=== PATIENT | male | born 1970 | race Caucasian/White ===

== ENCOUNTER 2025-05-22 16:21 | Outpatient (OUT) | payer BC, SELFPAY ==
[2025-05-22 16:43] LABS: Hematocrit 36.6 % (42.0-54.0); Hemoglobin 12.5 g/dL (14.0-18.0); Immature Granulocytes Abs Auto 0.01 10^3/uL (0.00-0.03); Immature Granulocytes Pct Auto 0.2 % (0.0-0.5); Lymphocytes Absolute Auto 1.3 10^3/uL (1.2-3.8); Mean Corpuscular HGB Conc 34.2 g/dL (29.9-35.2); Mean Corpuscular Hemoglobin 30.1 pg (25.9-34.0); Mean Corpuscular Volume 88.2 fL (80.0-94.0); Platelet Count 295 10^3/uL (150-450); Red Blood Count 4.15 10^6/uL (4.70-6.10); White Blood Count 5.1 10^3/uL (4.0-11.0)
[2025-05-22 17:29] LABS: Mono Screen NEGATIVE (NEGATIVE)
== END 2025-05-22 16:22 | disposition home or self-care (01) ==
PROVIDERS: PCP Family Medicine; Visit Provider Nurse Practitioner Family
DX: R50.9 Fever, unspecified (principal)
CPT/HCPCS: 36415; 85025; 85652; 86140; 86308

== ENCOUNTER 2025-05-26 12:48 | Outpatient (OUT) | payer BC, SELFPAY ==
--- NOTE | 2025-05-26 13:04 | XR_ITS ---
The [address] [address] Patient Name: KIM GUTHRIE JR MRN: [id number] date: 1970 Sex: M Assigned Patient Location: LAB Current Patient Location: LAB Accession/Order Number: [id number] Exam Date: 05/26/2025 13:10 Report Date: 05/26/2025 14:15 At the request of: YUSEF TELLEZ MD Procedure: XR chest 2V Chest 2 views CLINICAL HISTORY: Fever, Fatigue COMPARISON: None FINDINGS: Heart normal in size. Left lower lobe airspace disease. No pneumothorax pleural effusion or free air. XR/XR chest 2V IMPRESSION: LEFT LOWER LOBE AIRSPACE DISEASE. REPEAT CHEST X-RAY AFTER THERAPY IS SUGGESTED TO ENSURE RESOLUTION. Impression dictated by: Leonel Kearney Jr., DVíctorOVíctor 05/26/2025 2:15 PM Dictation Location: [place] [address] Electronically authenticated by: [id number] Y Date: 05/26/2025 14:15
[2025-05-26 14:19] LABS: Glucose Urine UA NEGATIVE (NEGATIVE)
== END 2025-05-26 12:49 | disposition home or self-care (01) ==
PROVIDERS: PCP Family Medicine; Visit Provider Family Medicine
DX: R50.9 Fever, unspecified (principal); R53.83 Other fatigue
CPT/HCPCS: 71046; 81003; 87086

== ENCOUNTER 2025-06-16 12:37 | Outpatient (OUT) | payer BC, SELFPAY ==
--- OUTSIDE RECORDS SUMMARY | 2025-06-16 12:42 | XMS_ITS | Clinical Summary ---
Author Organization [facility] Address [address], [address] [place] [address] Care Team Providers Care Tire Assembler Name Role Phone Roxanna Blancas MD Primary Care Provider [phone] Allergies Active AllergyReactionsCriticalityNoted DateComments Sulfamethoxazole-DlbocyrlfpsbMlqxFfy75/13/2019 Allergic sun Ithgdnnt98/08/2023 Headaches Medications MedicationSigDispense QuantityRefillsLast FilledStart DateEnd DateStatus lisinopril (PRINIVIL;ZESTRIL) 10 MG tablet Take 1 tablet by mouth dailyActive buprenorphine-naloxone (SUBOXONE) 8-2 MG SUBL SL tablet place 1 tablet under the tongue and ALLOW to dissolve once daily06/03/2023ctive cyclobenzaprine (FLEXERIL) 10 MG tablet Take 1 tablet by mouth 3 times daily as neededActive senna (SENOKOT) 8.6 MG tablet Take 1 tablet by mouth dailyActive esomeprazole Magnesium (NEXIUM) 20 MG PACK Take 1 packet by mouth dailyActive Cholecalciferol (VITAMIN D3) 50 MCG (2000 UT) CAPS Take by mouthActive Vitamin A 2400 MCG (8000 UT) CAPS Take by mouthActive vitamin E 400 UNIT capsule Take 1 capsule by mouth dailyActive vitamin C (ASCORBIC ACID) 500 MG tablet Take 1 tablet by mouth dailyActive Lawrence-3 Fatty Acids (FISH OIL) 1000 MG capsule Take by mouth dailyActive zinc 50 MG TABS tablet Take 1 tablet by mouth dailyActive diphenhydrAMINE (BENADRYL) 25 MG capsule Take 1 capsule by mouth every 6 hours as needed for ItchingActive Bee Pollen 1000 MG TABS Take by mouthActive Active Problems No known active problems Social History Tobacco UseTypesPacks/DayYears UsedDateSmoking Tobacco: Unknown Tobacco Cessation:Counseling Given: Not Answered Sex and Gender InformationValueDate RecordedSex Assigned at BirthNot on file Legal FooDgch6904/27/2023 9:35 AM EDTGender IdentityNot on fileSexual Orientation Not on file Last Filed Vital Signs Vital SignReadingTime TakenCommentsBlood Pressure--Pulse--Temperature-- Respiratory Rate--Oxygen Saturation--Inhaled Oxygen Concentration--Uhzoaa93.4 kg (217 lb)06/05/2023 8:13 AM OWTGhiure567.9 cm (6')06/05/2023 8:13 AM EDTBody Mass Index29.431 8:13 AM EDT Plan of Treatment Health MaintenanceDue DateLast DoneCommentsDepression Tzkjlf1811/06/1980HIV screen 11/07/1983Hepatitis C ajumte2511/06/1986DTaP/Tdap/Td vaccine (1 - Tdap)11/07/1987 Hepatitis B vaccine (1 of 3 - 19+ 3-dose series)11/07/19870090Mnpsoz13/23/2009 Dzykokpqgqo20/23/2014Colorectal Cancer Ucgbyy3611/06/2013FIT/FOBT: Average risk 2013Fecal-DNA (Cologuard): Average risk2013Sigmoidoscopy/CT qpibxwocawgk94/23/2014Pneumococcal 50+ years Vaccine (1 of 1 - PCV)2018Flu vaccine (#1)511/11/2021, 04/29/2021, 06/17/2020, Additional history existsCOVID-19 Vaccine (2024- season)5109/04/2020, 12/03/2020, 11/07/2020hingles sxjggavZtzxpefta34/14/2022, 07/22/2021Hepatitis A vaccineAged OutNo longer eligible based on patient's age to complete this topicHib vaccine Aged OutNo longer eligible based on patient's age to complete this topic Meningococcal (ACWY) vaccineAged OutNo longer eligible based on patient's age to complete this topicMeningococcal B vaccineAged OutNo longer eligible based on patient's age to complete this topicPolio vaccineAged OutNo longer eligible based on patient's age to complete this topic Insurance Care Teams Team MemberRelationshipSpecialtyStart DateEnd Date Roxanna Blancas MD [address] [place] [phone] PCP - GeneralFamily Medicine05/05/23
--- OUTSIDE RECORDS SUMMARY | 2025-06-16 12:42 | XMS_ITS | Clinical Summary ---
Author Organization [employer] [facility] Address [id number] [address] [place] [address] Care Team Providers Care Motor Polarizer Name Role Phone Roxanna Blancas MD Primary Care Provider [phone] Allergies Active AllergyReactionsCriticalityNoted DateComments Sulfamethoxazole-JtdfwccjddmaUovvWkk64/13/5813ZpldjzvbrjSjsfopcn32/03/2024 MoxifloxacinOther (See Comments)02/02/2024Sulfa (Sulfonamide Antibiotics)Hives 02/02/20242220VmrdfrgjZydpy08/08/2023 Headaches Headaches KirxbfaphnptMrkgt93/18/2024 Medications * This document contains information received from the source organization and may not represent a complete record from that organization. MedicationSigDispense QuantityRefillsLast FilledStart DateEnd DateStatus lisinopril (PRINIVIL,ZESTRIL) 10 mg tablet Take 1 tablet (10 mg total) by mouth in the morning.Active senna (SENOKOT) 8.6 mg tablet Take 1 tablet (8.6 mg total) by mouth in the morning and 1 tablet (8.6 mg total) before bedtime.Active ibuprofen (ADVIL,MOTRIN) 200 mg tablet Take 4 tablets (800 mg total) by mouth every 8 (eight) hours as needed for pain. Active omega 8-ocm-wqy-fish oil (Fish OiL) 300-1,000 mg capsule Take by mouth daily.Active zinc gluconate 30 mg tablet Take by mouth once daily.Active cholecalciferol, vitamin D3, (VITAMIN D3) 2,000 units capsule Take 1 capsule (2,000 Units total) by mouth in the morning.Active ascorbic acid (VITAMIN C) 500 mg tablet Take 1 tablet (500 mg total) by mouth in the morning.Active VITAMIN A ORAL Take by mouth daily.Active BEE POLLEN ORAL Take by mouth daily.Active buprenorphine-naloxone (SUBOXONE) 8-2 mg per SL tablet Place 1.5 tablets under the tongue in the morning.Active acetaminophen (TYLENOL EXTRA STRENGTH) 500 mg tablet Take 2 tablets (1,000 mg total) by mouth every 6 (six) hours as needed for pain. Active Active Problems ProblemNoted DateDiagnosed DateMajor depressive disorder, single episode, mild 11/11/2019 Family History Medical HistoryRelationNameCommentsDiabetesBrotherDiabetesMotherHypertension MotherRelationNameStatusCommentsBrotherMother Social History Tobacco UseTypesPacks/DayYears UsedDateSmoking Tobacco: NeverSmokeless Tobacco: NeverAlcohol UseStandard Drinks/WeekCommentsYes0 (1 standard drink = 0.6 oz pure alcohol)sociallyChildcareAnswerDate XajkhwbeQbavzosltVvpgils17/12/2019Employment AnswerDate YfiqksttAuorbiakmjUqqfqye25/12/2019Hunger ScreeningAnswerDate RecordedWithin the past 12 months we worried whether our food would run out before we got money to buy more.Never True02/08/2025Within the past 12 months the food we bought just didn't last and we didn't have money to get more.Never True02/08/2025Purpose - LifeAnswerDate RecordedPurpose and direction in life Wzsdlnd3409/27/2020ex and Gender InformationValueDate RecordedSex Assigned at BirthNot on fileLegal KiuYfuk6703/22/2015 11:37 AM EDTGender IdentityNot on file Sexual OrientationNot on file Last Filed Vital Signs Vital SignReadingTime TakenCommentsBlood Hnwqwenl708/0997902/08/2025 4:34 PM EDT Bnini950202/08/2025 4:34 PM ISTQgofpjtprns09.9 ??C (98.5 ??F)02/08/2025 4:34 PM EDTRespiratory Veup328002/08/2025 4:34 PM EDTOxygen Pfxdjoizop953%02/08/2025 4:34 PM EDTInhaled Oxygen Concentration--Nlrtfd61.6 kg (191 lb)02/08/2025 4:34 PM EDT Utfrov057.9 cm (6')02/08/2025 4:34 PM EDTBody Mass Index25.9002/08/2025 4:34 PM EDT Plan of Treatment Health MaintenanceDue DateLast DoneCommentsDepression Azokihgxt72/23/1981Adult BMI Follow Up Plan1986DTaP,Tdap and Td Vaccines (1 - Tdap)11/07/1987COVID- 19 Vaccine (4 - 2024- season)/, 12/03/2020, 11/07/2020 Influenza Ktaygsx88/11/2021, 04/29/2021, 06/17/2020, Additional history existsAdult BMI Dkxdvzfcj76/Tobacco Mllrylwdy70/25/2026 02/08/20250287Qvnibazxyqt20/16/203408/, 04/01/2024Zoster (Shingles) Vaccine Fcdrjgvso75/14/2022, 07/22/2021 Medical Devices Not on file Procedures Procedure NamePriorityDate/TimeAssociated DiagnosisCommentsPROVATION COLONOSCOPY Rzskful1004/01/2024 8:58 AM EDT from Last 3 Months or Most Recently Relevant to Health Maintenance Results * Colonoscopy Report (04/01/2024 8:58 AM EDT)Specimen (Source)Anatomical Location / LateralityCollection Method / VolumeCollection TimeReceived Time Narrative SYSTEMGENERATED, DOCUMENTATION - 04/01/2024 8:58 AM EDT This order has been auto-finalized for image and report archival in PACs. *For full report details, please reach out to your physician. ??This image is visible to you in MyChart.* Authorizing ProviderResult TypeResult StatusMennatluiza Urrutia MDIMG OR IMG ORDERABLESFinal Result from Last 3 Months or Most Recently Relevant to Health Maintenance Insurance * Guarantor: Fracisco Reed Jr.Account TypeRelation to PatientDate of BirthPhoneBilling AddressPersonal/ZlxkxcJvta96/23/1971 [address] [place] [address] * Guarantor: Fracisco Reed Jr.Account TypeRelation to PatientDate of BirthPhoneBilling AddressWorkers QliuCbwy09/23/1969[address] [place] [address] Care Teams Team MemberRelationshipSpecialtyStart DateEnd Date Roxanna Blancas MD [address] [place] [address] [facility]09/28/17
--- OUTSIDE RECORDS SUMMARY | 2025-06-16 12:42 | XMS_ITS | Clinical Summary ---
Author Organization [facility] Healthcare Address [address] [place] [address] Care Team Providers Care Center Sales And Service Associate Name Role Phone Unavailable Primary Care Provider Unavailabl e Allergies Active AllergyReactionsCriticalityNoted DateComments Sulfamethoxazole-Yjrgzsfcdyoc91/08/2023 Allergic sun PxvaabbcjnUlfbiobo74/03/8021Gxjlxriq26/08/2023 Headaches Medications MedicationSigDispense QuantityRefillsLast FilledStart DateEnd DateStatus buprenorphine-naloxone (Zubsolv) 5.7-1.[address] 1 tablet under the tongue in the morning.Active cholecalciferol (Vitamin D-3) 50 MCG (1999 UT) capsule Take 2,000 Units by mouth in the morning.Active dexAMETHasone (Decadron) 4 MG tablet Take 4 mg by mouth 1 (one) time each day at the same time.Active alpha tocopherol (Vitamin E) 400 units capsule Take 400 Units by mouth in the morning.Active lisinopril 10 MG tablet Take 10 mg by mouth in the morning.Active CeleBREX 200 MG capsule Take 200 mg by mouth in the morning.Active ascorbic acid (Vitamin C) 250 MG chewable tablet Chew 250 mg 1 (one) time each day at the same time.Active cyclobenzaprine (Flexeril) 10 MG tablet Indications:Chronic bilateral low back pain with bilateral sciaticaTAKE 1 TABLET BY MOUTH EVERY NIGHT AT BEDTIME 90 tablet 5Active Active Problems ProblemNoted DateDiagnosed DateIntervertebral disc disorders with radiculopathy, lumbosacral xhtycf6610/05/20232146Pymqmaj30/03/2024Lumbar spinal qqjofsyd17/03/2024 Lumbar vatlcfsgunodv23/03/2024Herniated lumbar intervertebral disc08/19/2023 Degeneration of lumbar intervertebral disc08/19/2023hronic bilateral low back pain with bilateral cwaohnzi34/11/2023Trochanteric bursitis of both hips 04/27/2023Major depressive disorder, single episode, mild11/11/2019Hypertension 04/23/2008Liver donor07/16/2001 Family History Medical HistoryRelationNameCommentsSeizuresBrother 3Tonyhx of seizures, none in yearsHypertensionMotherMigrainesSister 1MissychronicRelationNameStatusComments Brother 1AliveBrother 2AliveBrother 3TonyAliveyoungest brotherFatherAlivehx of lower back issuesMotherAliveSister 1MissyAliveSister 2Alive Social History Tobacco UseTypesPacks/DayYears UsedDateSmoking Tobacco: NeverSmokeless Tobacco: Never Tobacco Cessation:Counseling Given: Not Answered Alcohol UseStandard Drinks/WeekCommentsNot Currently0 (1 standard drink = 0.6 oz pure alcohol)Sex and Gender InformationValueDate RecordedSex Assigned at Male08/17/2023 12:59 PM ESTLegal OchEfjj7610/29/2022 6:51 PM EDTGender Identity Male08/17/2023 12:59 PM ESTSexual OrientationNot on file Last Filed Vital Signs Vital SignReadingTime TakenCommentsBlood Ikzmdqdk199/8804/24/2023 8:44 AM EDT Poqte673504/24/2023 8:44 AM EDTTemperature--Respiratory Rate--Oxygen Saturation-- Inhaled Oxygen Concentration--Ylnkom57.5 kg (204 lb)08/19/2023 2:54 PM ESTHeight 182.9 cm (6')04/24/2023 8:44 AM EDTBody Mass Index27.6709 8:44 AM EDT Plan of Treatment DateTypeDepartmentCare Team (Latest Contact Info)Rdkrokpobnh94/05/2025 9:40 AM ESTOffice Visit [facility] [address] [place] [address] Polo Dubon MD [address] [place] [address] Health MaintenanceDue DateLast DoneCommentsCT Zsxtjtidrfqy83/23/1969FIT-DNA 1968FIT1968FOBT1968 3751Lbwmbvlblmcut17/23/1969MMR Vaccines (1 of 1 - Standard series)1969DTaP/Tdap/Td Vaccines (1 - Tdap)11/07/1975Hepatitis B Vaccines (1 of 3 - 19+ 3-dose series)11/07/1987COVID-19 Vaccine ( - season)/, 12/03/2020, 11/07/2020Influenza Vaccine (#1) /11/2021, 04/29/2021, 06/17/2020, Additional history exists Liegsqdsuru62/16/203408/, 04/01/2024, 4Colorectal Cancer Twmtngois73/16/2034HIB VaccinesAged OutNo longer eligible based on patient's age to complete this topicHPV VaccinesAged OutNo longer eligible based on patient's age to complete this topicHepatitis A VaccinesAged OutNo longer eligible based on patient's age to complete this topicIPV VaccinesAged OutNo longer eligible based on patient's age to complete this topicMeningococcal B VaccineAged OutNo longer eligible based on patient's age to complete this topicMeningococcal VaccineAged OutNo longer eligible based on patient's age to complete this topic Pneumococcal Vaccine: Pediatrics (0 to 5 Years) and At-Risk Patients (6 to 64 Years)Aged OutNo longer eligible based on patient's age to complete this topic Rotavirus VaccinesAged OutNo longer eligible based on patient's age to complete this topic Insurance
--- NOTE | 2025-06-16 12:54 | XR_ITS ---
The [address] [address] Patient Name: KIM GUTHRIE JR MRN: [id number] date: 1970 Sex: M Assigned Patient Location: LAB Current Patient Location: LAB Accession/Order Number: [id number] Exam Date: 06/16/2025 12:55 Report Date: 06/16/2025 15:24 At the request of: YUSEF TELLEZ MD Procedure: XR chest 2V Chest 2 views CLINICAL HISTORY: Infiltrate Of Lower Lobe Left Lung COMPARISON: Chest 05/26/2025 FINDINGS: Heart normal in size. Left lower lobe airspace disease persists. Right lung is clear. No pneumothorax pleural effusion or free air. XR/XR chest 2V IMPRESSION: LEFT LOWER LOBE AIRSPACE DISEASE PERSISTS. FURTHER EVALUATION WITH CT IS RECOMMENDED. Impression dictated by: Leonel Kearney Jr., D.O. 06/16/2025 3:24 PM Dictation Location: [place] [address] Electronically authenticated by: [id number] Y Date: 06/16/2025 15:24
[2025-06-16 13:18] LABS: Hematocrit 38.6 % (42.0-54.0); Hemoglobin 13.1 g/dL (14.0-18.0); Immature Granulocytes Abs Auto 0.01 10^3/uL (0.00-0.03); Immature Granulocytes Pct Auto 0.3 % (0.0-0.5); Lymphocytes Absolute Auto 1.3 10^3/uL (1.2-3.8); Mean Corpuscular HGB Conc 33.9 g/dL (29.9-35.2); Mean Corpuscular Hemoglobin 30.0 pg (25.9-34.0); Mean Corpuscular Volume 88.5 fL (80.0-94.0); Platelet Count 283 10^3/uL (150-450); Red Blood Count 4.36 10^6/uL (4.70-6.10); White Blood Count 3.6 10^3/uL (4.0-11.0)
[2025-06-16 13:32] LABS: TSH W/ REFLEX FT4 1.259 uIU/mL (0.358-3.740)
== END 2025-06-16 12:38 | disposition home or self-care (01) ==
PROVIDERS: PCP Family Medicine; Visit Provider Family Medicine
DX: D64.9 Anemia, unspecified (principal); R53.83 Other fatigue; R91.8 Other nonspecific abnormal finding of lung field
CPT/HCPCS: 36415; 71046; 84403; 84443; 85025

== ENCOUNTER 2025-06-30 08:24 | Outpatient (OUT) | payer BC, SELFPAY ==
--- OUTSIDE RECORDS SUMMARY | 2025-06-30 08:27 | XMS_ITS | Clinical Summary ---
Author Organization [facility] Healthcare Address [address] [place] [address] Care Team Providers Care Machine Stuffer Automatic Name Role Phone Unavailable Primary Care Provider Unavailabl e Allergies Active AllergyReactionsCriticalityNoted DateComments Sulfamethoxazole-Zmeyfdcydwqp35/08/2023 Allergic sun OkfongcitmPsnbgdwz70/03/4921Xlelbqxp76/08/2023 Headaches Medications MedicationSigDispense QuantityRefillsLast FilledStart DateEnd DateStatus [...] DateDiagnosed DateIntervertebral disc disorders with radiculopathy, lumbosacral aaysxe2410/05/20237268Mjpqnzy80/03/2024Lumbar spinal njexzfuw69/03/2024 Lumbar slmruymkbcaxs96/03/2024Herniated lumbar intervertebral disc08/19/2023 Degeneration of lumbar intervertebral disc08/19/2023hronic bilateral low back pain with bilateral /11/2023Trochanteric bursitis of both hips 04/27/2023Major depressive disorder, [...] RecordedSex Assigned at Male08/17/2023 12:59 PM ESTLegal RfnOrts4610/29/2022 6:51 PM EDTGender Identity Male08/17/2023 12:59 PM ESTSexual OrientationNot on file Last Filed Vital Signs Vital SignReadingTime TakenCommentsBlood Kqozpnec618/8804/24/2023 8:44 AM EDT Tubpa321304/24/2023 8:44 AM EDTTemperature--Respiratory Rate--Oxygen Saturation-- Inhaled Oxygen Concentration--Aggwsa07.5 kg (204 lb)08/19/2023 2:54 PM ESTHeight 182.9 cm (6')04/24/2023 8:44 AM EDTBody Mass Index27.6709 8:44 AM EDT Plan of Treatment DateTypeDepartmentCare Team (Latest Contact Info)Gtfedzacqiy82/05/2025 9:40 AM ESTOffice Visit [facility] [address] [place] [address] Polo Dubon MD [address] [facility] [address] [place] [address] Health MaintenanceDue DateLast DoneCommentsCT Flucgfjwgjue03/23/1969FIT-DNA 1968FIT1968FOBT1968 1281Qlvhgezztjzpd64/23/1969COVID-19 Vaccine ( season)/, 12/03/2020, 11/07/2020Influenza Vaccine (#1)/11/2021, 04/29/2021, 06/17/2020, Additional history exists Yfgvccbzypg38/16/203408/, 04/01/2024, 4Colorectal Cancer Ucyxwqxlf19/16/2034Pneumococcal Vaccine: Pediatrics (0 to 5 Years) and At-Risk Patients (6 to 64 Years)Aged OutNo longer eligible based on patient's age to complete this topic Insurance
--- OUTSIDE RECORDS SUMMARY | 2025-06-30 08:27 | XMS_ITS | Clinical Summary ---
Author Organization [employer] s tem Address [id number] [address] [place] [address] Care Team Providers Care Burning Supervisor Name Role Phone Roxanna Blancas MD Primary Care Provider [phone] Allergies Active AllergyReactionsCriticalityNoted DateComments Sulfamethoxazole-UrxvcicrdbmjDlqdOat73/13/8725XxwackvoksBpfigwku47/03/2024 MoxifloxacinOther (See Comments)02/02/2024Sulfa (Sulfonamide Antibiotics)Hives 02/02/20249150GucybobhGcliy43/08/2023 Headaches Headaches IyzroefkieaqLpkzv43/18/2024 Medications * This document contains information received [...] hours as needed for pain. Active omega 7-pmk-hsi-fish oil (Fish OiL) 300-1,000 mg capsule Take [...] standard drink = 0.6 oz pure alcohol)sociallyChildcareAnswerDate LqddnpwaSxyrjblycUnlmcwb33/12/2019Employment AnswerDate OwchgwucZpyhfewmokWdodcmh04/12/2019Hunger ScreeningAnswerDate RecordedWithin the past 12 months we worried whether our food would run out before we got money to buy more.Never True02/08/2025Within the past 12 months the food we bought just didn't last and we didn't have money to get more.Never True02/08/2025Purpose - LifeAnswerDate RecordedPurpose and direction in life Debljsv8909/27/2020ex and Gender InformationValueDate RecordedSex Assigned at BirthNot on fileLegal SwnGyix8903/22/2015 11:37 AM EDTGender IdentityNot on file Sexual OrientationNot on file Last Filed Vital Signs Vital SignReadingTime TakenCommentsBlood Zsmbnqvs042/4971202/08/2025 4:34 PM EDT Mdfbp858602/08/2025 4:34 PM VVUVvsfyohtxoc24.9 ??C (98.5 ??F)02/08/2025 4:34 PM EDTRespiratory Ybhe302102/08/2025 4:34 PM EDTOxygen Qdhokfjltk041%02/08/2025 4:34 PM EDTInhaled Oxygen Concentration--Libdiy75.6 kg (191 lb)02/08/2025 4:34 PM EDT Vbzztt390.9 cm (6')02/08/2025 4:34 PM EDTBody Mass Index25.9002/08/2025 4:34 PM EDT Plan of Treatment Health MaintenanceDue DateLast DoneCommentsDepression Lswcvcxus84/23/1981Adult BMI Follow Up Plan1986DTaP,Tdap and Td Vaccines (1 - Tdap)11/07/1987COVID- 19 Vaccine (4 - 2024- season)/, 12/03/2020, 11/07/2020 Influenza Eckgofk47/11/2021, 04/29/2021, 06/17/2020, Additional history existsAdult BMI Llvxpynav42/Tobacco Waztcfobe55/25/2026 02/08/20254688Cupfvptoayg15/16/203408/, 04/01/2024Zoster (Shingles) Vaccine Lcmjiemyw85/14/2022, 07/22/2021 Medical Devices Not on file Procedures Procedure NamePriorityDate/TimeAssociated DiagnosisCommentsPROVATION COLONOSCOPY Qlcghzo4404/01/2024 8:58 AM EDT from Last 3 Months [...] Reed Jr.Account TypeRelation to PatientDate of BirthPhoneBilling AddressPersonal/WwoafrIalk63/23/1971 [address] [place] [address] * Guarantor: Fracisco Reed Jr.Account TypeRelation to PatientDate of BirthPhoneBilling AddressWorkers WnvhAjkb04/23/1969[address] [place] [address] Care Teams Team MemberRelationshipSpecialtyStart DateEnd Date Roxanna Blancas MD [address] [place] [address] [facility]09/28/17
--- OUTSIDE RECORDS SUMMARY | 2025-06-30 08:27 | XMS_ITS | Clinical Summary ---
Author Organization [facility] Address [address], [address] [place] [address] Care Team Providers Care Safety Analyst Name Role Phone Roxanna Blancas MD Primary Care Provider [phone] Allergies Active AllergyReactionsCriticalityNoted DateComments Sulfamethoxazole-WefookbniiegEysiRuq02/13/2019 Allergic sun Wbwvkbgk79/08/2023 Headaches Medications MedicationSigDispense QuantityRefillsLast FilledStart DateEnd DateStatus [...] tablet Take 1 tablet by mouth dailyActive [place]-3 Fatty Acids (FISH OIL) 1000 MG capsule [...] RecordedSex Assigned at BirthNot on file Legal JjgYnhl7104/27/2023 9:35 AM EDTGender IdentityNot on fileSexual Orientation Not on file Last Filed Vital Signs Vital SignReadingTime TakenCommentsBlood Pressure--Pulse--Temperature-- Respiratory Rate--Oxygen Saturation--Inhaled Oxygen Concentration--Iyukot74.4 kg (217 lb)06/05/2023 8:13 AM WOGQyszjo487.9 cm (6')06/05/2023 8:13 AM EDTBody Mass Index29.431 8:13 AM EDT Plan of Treatment Health MaintenanceDue DateLast DoneCommentsDepression Uzjjmz8711/06/1980HIV screen 11/07/1983Hepatitis C pavtne3511/06/1986DTaP/Tdap/Td vaccine (1 - Tdap)11/07/1987 Hepatitis B vaccine (1 of 3 - 19+ 3-dose series)11/07/19876431Tbpbcy83/23/2009 Hupdmpyybhf88/23/2014Colorectal Cancer Eyumen4111/06/2013FIT/FOBT: Average risk 2013Fecal-DNA (Cologuard): Average risk2013Sigmoidoscopy/CT ntqgtchpcejg41/23/2014Pneumococcal 50+ years Vaccine (1 of 1 - PCV)2018Flu vaccine (#1)511/11/2021, 04/29/2021, 06/17/2020, Additional history existsCOVID-19 Vaccine (2024- season)5109/04/2020, 12/03/2020, 11/07/2020hingles mlqhssbRlgxolang62/14/2022, 07/22/2021Hepatitis A vaccineAged OutNo longer eligible based [...] DateEnd Date Roxanna Blancas MD [address] [place] [phone] PCP - GeneralFamily Medicine05/05/23
--- NOTE | 2025-06-30 08:37 | CT_ITS ---
The [address] [address] Patient Name: KIM GUTHRIE JR MRN: [id number] date: 1970 Sex: M Assigned Patient Location: CT Current Patient Location: CT Accession/Order Number: [id number] Exam Date: 06/30/2025 08:50 Report Date: 06/30/2025 10:13 At the request of: YUSEF TELLEZ MD Procedure: CT chest w con CT CHEST WITH INTRAVENOUS CONTRAST: CLINICAL HISTORY: Follow-up infiltrate of left lower lobe lung COMPARISON: Chest x-ray 06/16/2025 TECHNIQUE: Spiral images were obtained through the chest following intravenous administration of 100 mL of contrast. Images were reviewed using both narrow and wide window settings. This CT exam was performed using one or more following dose reduction techniques: Automated exposure control, adjustment of the mA and/or kV according to patient size, or use of iterative reconstruction technique. FINDINGS: The heart is not enlarged. There is no pericardial effusion. No aortic aneurysm or dissection is seen. There are mediastinal lymph nodes with short axis dimension up to 15 mm. There are also hilar nodes, left larger than right with short axis dimension of 14 mm. The axillary lymph nodes have fatty adrien. The bony structures are intact. Small endplate spurs are visualized at the spine. There is minimal apical scarring. There is an irregular peribronchial opacity at the left lower lobe centrally. It measures approximately 17 mm in size. There is no additional consolidation, pleural effusion or pneumothorax. There is a punctate nodule at the right lower lobe on axial image 81. Limited cuts through the upper abdomen show possible fatty liver. CT/CT chest w con IMPRESSION: IRREGULAR LEFT LOWER LOBE OPACITY CORRELATING WITH FINDING ON CHEST X-RAY. ALTHOUGH THIS MAY STILL BE INFECTIOUS OR INFLAMMATORY, NEOPLASM IS NOT EXCLUDED. CONTINUED FOLLOW-UP IS SUGGESTED. PET CT COULD ALSO BE CONSIDERED. MILD MEDIASTINAL AND LEFT HILAR ADENOPATHY. Impression dictated by: Mary Miller M.D. 06/30/2025 10:13 AM Dictation Location: [place] [address] Electronically authenticated by: [id number] Y Date: 06/30/2025 10:13
== END 2025-06-30 08:25 | disposition home or self-care (01) ==
LOC: CT 08:24
PROVIDERS: PCP Family Medicine; Visit Provider Family Medicine
DX: R91.8 Other nonspecific abnormal finding of lung field (principal)
CPT/HCPCS: 71260; Q9967